=== PATIENT | female | born 1975 | race Caucasian/White ===

== ENCOUNTER 2019-03-25 23:40 | Emergency (ER) | payer MEDICAID ==
[~2019-03-25] VITALS: Ht 165.1 cm; Wt 59.0 kg
[~2019-03-25 23:40] MED LIST: SYN.1 PO; TRAM50TA1 PO
[2019-03-25 23:45] VITALS: BP 129/91
--- NOTE | 2019-03-25 23:49 | NUR ---
PT AMBULATED TO BED 2. PROVIDED WITH URINE CUP.
--- NOTE | 2019-03-26 | NUR ---
44 YO F BIB PRESENTS TO ED C/O DIZZINESS AND MILLS. PT STATES SHE HIT HEAD ON CABINET THIS AFTERNOON. NO LOC/ALOC. NO GROSS TRAUMA/INJURY NOTED. PT ALSO REPORTS CHEST PAIN WITH DEEP BREATHING X1 WEEK. -- PT A/O X4. EYES PERRLA. MOTOR STRENGTH EQUAL/INTACT. -- APPEARS MILDLY ANXIOUS. COOPERATIVE, ANSWERS QUESTIONS APPROPRIATELY. BEHAVIOR APPROPRIATE. -- SKIN PINK, WARM, DRY. BREATHING EVEN, UNLABORED. PMH-- MIGRAINS RX-- DENIES
--- NOTE | 2019-03-26 00:30 | NUR ---
DR. YAN BEDSIDE EVALUATING PT
[2019-03-26] MEDS ORDERED: ONDANSETRON 4 MG/2 ML VIAL IVP ONE (00:40)
[2019-03-26] MEDS ORDERED: KETOROLAC 30 MG/ML VIAL IVP ONE (00:40)
[2019-03-26] MEDS ORDERED: NACL 0.9% 1,000 ML IV ONE (00:40)
--- NOTE | 2019-03-26 01:30 | NUR ---
PT RECEIVED 30 MG TORADOL IVP AND 4 MG ZOFRAN IVP FOR PAIN AND N/V. PT REPORTS 2/10 PAIN AND NO MORE NAUSEA. MEDICATIONS EFFECTIVE.
[2019-03-26 01:42] VITALS: BP 126/85
--- NOTE | 2019-03-26 01:42 | NUR ---
Patient discharged with v/s stable. Written and verbal after care instructions given and explained. Patient alert, oriented and verbalized understanding of instructions. Ambulatory with steady gait. All questions addressed prior to discharge. ID band removed. Patient advised to follow up with PMD. Rx of Motrin and Zofran given. Patient educated on indication of medication including possible reaction and side effects. Opportunity to ask questions provided and answered.
== END 2019-03-26 01:42 | disposition home or self-care (01) ==
LOC: MED 23:40
DX: R51 Headache (principal); R06.02 Shortness of breath; R07.89 Other chest pain; R20.0 Anesthesia of skin; E07.9 Disorder of thyroid, unspecified; M79.7 Fibromyalgia; Z98.890 Other specified postprocedural states; Z79.891 Long term (current) use of opiate analgesic; Z88.1 Allergy status to other antibiotic agents; Z88.5 Allergy status to narcotic agent; Z88.8 Allergy status to other drugs, medicaments and biological substances; Z88.0 Allergy status to penicillin
CPT/HCPCS: 81002; 81025; 93005; 96361; 96374; 96375; 99283; J1885; J2405; J7030